=== PATIENT | female | born 1970 | race Caucasian/White ===

== ENCOUNTER 2020-02-10 06:50 | Day surgery (SDC) | payer OTHER ==
[2020-02-07 16:33] VITALS: BMI 26.6
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
[2020-02-10] MEDS ORDERED: Thrombin 5000 UNITS/5 ML VIAL ONE (07:26)
[2020-02-10] MEDS ORDERED: Clindamycin/D5W 900 mg/50 ml Premix Bag ONE (07:36)
[2020-02-10] MEDS ORDERED: Levofloxacin 500 mg/D5W 100 ml Premix Bag ONE (07:36)
[2020-02-10] MEDS ORDERED: Bupivacaine PF 0.5% 30 ML VIAL ONE ×2 (08:12→10:51)
[2020-02-10] MEDS ORDERED: Lidocaine 1% w/Epinephrine 1:100K 20 ML VIAL ONE (08:12)
[2020-02-10] MEDS ORDERED: Midazolam HCl 2 mg/2 ml Vial ONE ×2 (09:04→10:18)
[2020-02-10] MEDS ORDERED: Fentanyl 100 MCG/2 ML VIAL ONE ×3 (10:05→12:20)
[2020-02-10] MEDS ORDERED: Glycopyrrolate 0.2 MG/ML 5 ML SYRINGE ONE (11:50)
[2020-02-10] MEDS ORDERED: Ondansetron PF 4 MG/2 ML Vial ONE (11:50)
[2020-02-10] MEDS ORDERED: Lidocaine 1% PF 5 ML VIAL ONE (11:50)
[2020-02-10] MEDS ORDERED: PROPOFOL 200 MG/20 ML VIAL ONE (11:50)
[2020-02-10] MEDS ORDERED: Ketorolac Tromethamine 30 MG/ML VIAL ONE (11:50)
[2020-02-10] MEDS ORDERED: Rocuronium Bromide 10 MG/ML (10ML VIAL) ONE (11:50)
[2020-02-10] MEDS ORDERED: Dexamethasone 20 MG/5 ML VIAL ONE (11:50)
[2020-02-10] MEDS ORDERED: PHENYLEPHRINE-NS 100 MCG/ML 10 ML SYRINGE ONE (11:50)
[2020-02-10] MEDS ORDERED: Albuterol Sulfate HFA (OR ONLY) ONE (13:03)
[2020-02-10] MEDS ORDERED: Cyclobenzaprine 10 MG TAB ONE (13:21)
[2020-02-10] MEDS ORDERED: HYDROcodone/Acetaminophen 10/325 mg Tablet ONE (14:17)
--- NOTE | 2020-02-11 10:44 | OP ---
DATE OF PROCEDURE: 02/10/2020 DIRECTOR OF GOLF: Terrence Prince PA-C INDICATION: Pain. DIAGNOSES: Lumbar stenosis and lumbar radiculopathy. PROCEDURE PERFORMED: L3-L4 decompression and left L5 foraminotomy. ANESTHESIA: General. DESCRIPTION OF PROCEDURE: The patient was brought into the operating room and placed under general anesthesia. She was flipped from the supine to prone position on the operating room table. A linear incision was planned spanning L3 through L5. After prepping and draping and after an appropriate preoperative pause, the incision was created. The soft tissues were swept away from midline. C-arm images were obtained to confirm the appropriate levels. Decompression was then performed at L3-L4 using an Adson rongeur as well as Kerrisons and high-speed cutting drill bit. After decompressing the central canal and lateral recesses, we redirected our attention to the left L5 lateral recess, where foraminotomy and subsequently hemilaminectomy were performed on the left to decompress the descending and exiting L5 nerve root. After completing that portion of the procedure, the wound was irrigated. Hemostasis was maintained throughout. The wound was then closed in anatomic layers and a pressure dressing was applied. There were no known procedural complications. Job ID: [id number]
== END 2020-02-10 14:37 | disposition home or self-care (01) ==
LOC: SDC 06:50 → MERGE 06:50 → SDC 14:37
PROVIDERS: ATTEND Neurological Surgery
PROC: 01NB0ZZ Release Lumbar Nerve, Open Approach (ICD-10-PCS; principal; 2020-02-10)
DX: M48.061 Spinal stenosis, lumbar region without neurogenic claudication (principal); M54.16 Radiculopathy, lumbar region; G89.4 Chronic pain syndrome; I10 Essential (primary) hypertension; E78.5 Hyperlipidemia, unspecified; F17.200 Nicotine dependence, unspecified, uncomplicated; F31.9 Bipolar disorder, unspecified; F41.9 Anxiety disorder, unspecified; M17.0 Bilateral primary osteoarthritis of knee; Z79.899 Other long term (current) drug therapy; Z88.1 Allergy status to other antibiotic agents; Z88.8 Allergy status to other drugs, medicaments and biological substances; Z98.1 Arthrodesis status
CPT/HCPCS: 76000; J1100; J1885; J1956; J2001; J2250; J2405; J2704; J3010; J3370; J3490; S0020

== ENCOUNTER 2021-05-04 12:19 | Outpatient (CLI) | payer OTHER | END 2021-05-04 12:20 | disposition home or self-care (01) | LOC: BICMRI 12:19 | PROVIDERS: ATTEND Neurological Surgery | DX: M54.5 Low back pain (principal); M48.061 Spinal stenosis, lumbar region without neurogenic claudication; K68.12 Psoas muscle abscess; G06.1 Intraspinal abscess and granuloma | CPT/HCPCS: 72148 ==

== ENCOUNTER 2022-09-14 08:48 | Outpatient (CLI) | payer OTHER | END 2022-09-14 08:49 | disposition home or self-care (01) | LOC: BICCT 08:48 | PROVIDERS: ATTEND Neurological Surgery | DX: M47.26 Other spondylosis with radiculopathy, lumbar region (principal); Z98.890 Other specified postprocedural states | CPT/HCPCS: 72131 ==

== ENCOUNTER 2022-10-14 10:43 | Outpatient (CLI) | payer OTHER ==
[2022-10-14 11:27] LABS: Hemoglobin 13.2 g/dL (12.0-15.5); Mean Corpuscular HGB CONC 34.2 g/dL (32.0-36.0); Mean Corpuscular Hemoglobin 29.7 pg (27.0-33.0); Mean Corpuscular Volume 86.7 fl (81.6-98.3); Platelet Count 365 10x3/uL (150-450); RBC Distribution Width 14.3 % (11.5-14.5); Red Blood Cell (RBC) Count 4.45 10x6/uL (3.90-5.03)
[2022-10-14 11:58] LABS: PTT 31.7 sec (22.0-33.0); Prothrombin Time 10.8 sec (9.5-12.1)
== END 2022-10-14 10:44 | disposition home or self-care (01) ==
LOC: LABBT 10:43
PROVIDERS: ATTEND Neurological Surgery
DX: Z01.818 Encounter for other preprocedural examination (principal); M54.16 Radiculopathy, lumbar region
CPT/HCPCS: 85027; 85610; 85730; 93005; 93010

== ENCOUNTER 2022-10-19 06:49 | Day surgery (SDC) | payer OTHER ==
[2022-10-17 13:44] VITALS: BMI 26.6
[2022-10-19] MEDS ORDERED: Bupivacaine HCl 0.5%/Epinephrine 1:200,000/PF 30 ml Vial ONE (08:05)
[2022-10-19] MEDS ORDERED: Levofloxacin 500 mg/D5W 100 ml Premix Bag ONE (08:18)
[2022-10-19] MEDS ORDERED: Clindamycin/D5W 900 mg/50 ml Premix Bag ONE (08:18)
[2022-10-19] MEDS ORDERED: Midazolam HCl 2 mg/2 ml Vial ONE ×2 (08:27→08:48)
[2022-10-19] MEDS ORDERED: fentaNYL PF 100 MCG/2 ML SYRINGE ONE ×2 (08:33→10:48)
[2022-10-19] MEDS ORDERED: PROPOFOL 200 MG/20 ML VIAL ONE (08:47)
[2022-10-19] MEDS ORDERED: Glycopyrrolate 0.2 MG/ML 5 ML SYRINGE ONE (08:47)
[2022-10-19] MEDS ORDERED: Ondansetron PF 4 MG/2 ML Vial ONE (08:47)
[2022-10-19] MEDS ORDERED: Rocuronium Bromide 10 MG/ML (10ML VIAL) ONE (08:47)
[2022-10-19] MEDS ORDERED: Dexamethasone 20 MG/5 ML VIAL ONE (08:47)
[2022-10-19] MEDS ORDERED: Lidocaine 1% PF 5 ML VIAL ONE (08:47)
[2022-10-19] MEDS ORDERED: NEOSTIGMINE 3 MG/3 ML SYR 3 MG/3 ML SYRINGE ONE (08:47)
[2022-10-19 08:51] LABS: ALT (SGPT) 10 U/L (8-55); AST (SGOT) 23 U/L (5-34); Albumin 4.2 g/dL (3.5-5.0); Alkaline Phosphatase 128 U/L (40-110); Anion Gap 17 mmol/L (10-20); BUN (Urea Nitrogen) 14 mg/dL (9.8-20.1); Bilirubin, Direct 0.1 mg/dL (0.1-0.3); Bilirubin, Total 0.6 mg/dL (0.2-1.2); Calc. Creatinine Clearance 95 mL/min (70-130); Calcium 9.8 mg/dL (7.8-10.44); Carbon Dioxide 25 mmol/L (22-29); Chloride 101 mmol/L (98-107); Estimated GFR 85; Glucose 102 mg/dL (70-105); Potassium 3.5 mmol/L (3.5-5.1); Protein, Total 8.4 g/dL (6.0-8.3); Sodium 139 mmol/L (136-145)
== END 2022-10-19 12:20 | disposition home or self-care (01) ==
LOC: SDC 06:49
PROVIDERS: ATTEND Neurological Surgery
PROC: 01NB0ZZ Release Lumbar Nerve, Open Approach (ICD-10-PCS; principal; 2022-10-19)
DX: M48.062 Spinal stenosis, lumbar region with neurogenic claudication (principal); M54.16 Radiculopathy, lumbar region; M19.90 Unspecified osteoarthritis, unspecified site; G89.4 Chronic pain syndrome; E78.5 Hyperlipidemia, unspecified; K21.9 Gastro-esophageal reflux disease without esophagitis; F17.210 Nicotine dependence, cigarettes, uncomplicated; Z79.899 Other long term (current) drug therapy; Z88.1 Allergy status to other antibiotic agents; Z88.5 Allergy status to narcotic agent; Z98.1 Arthrodesis status
CPT/HCPCS: 80048; 80076; J1100; J1956; J2250; J2405; J2704; J3490

== ENCOUNTER 2022-12-22 09:55 | Outpatient (CLI) | payer OTHER | END 2022-12-22 09:56 | disposition home or self-care (01) | LOC: BICRAD 09:55 | PROVIDERS: ATTEND Neurological Surgery | DX: M54.6 Pain in thoracic spine (principal); M54.16 Radiculopathy, lumbar region; M47.816 Spondylosis without myelopathy or radiculopathy, lumbar region | CPT/HCPCS: 72072; 72120 ==

== ENCOUNTER 2024-09-20 05:32 | Day surgery (SDC) | payer OTHER ==
[2024-09-19 11:02] VITALS: BMI 28.1
[2024-09-20] MEDS ORDERED: EPINEPHrine 1 MG/ML VIAL ONE (06:09)
[2024-09-20] MEDS ORDERED: Thrombin 5000 UNITS/5 ML VIAL ONE (06:10)
[2024-09-20] MEDS ORDERED: Bupivacaine PF 0.5% 30 ML VIAL ONE (06:10)
[2024-09-20] MEDS ORDERED: fentaNYL PF 100 MCG/2 ML SYRINGE ONE ×3 (06:30→09:32)
[2024-09-20] MEDS ORDERED: Rocuronium Bromide 10 MG/ML (10ML VIAL) ONE (06:30)
[2024-09-20] MEDS ORDERED: Dexamethasone 4 mg/ml Vial ONE ×3 (06:30→07:42)
[2024-09-20] MEDS ORDERED: PROPOFOL 20 ML ONE ×2 (06:31→08:28)
[2024-09-20] MEDS ORDERED: Midazolam HCl 2 mg/2 ml Vial ONE ×2 (06:31→07:02)
[2024-09-20] MEDS ORDERED: LevoFLOXacin D5W 500 mg (100 mL) BAG ONE (06:48)
[2024-09-20] MEDS ORDERED: Clindamycin/D5W 900 mg/50 ml Premix Bag ONE (06:48)
[2024-09-20 06:57] LABS: Anion Gap 15 mmol/L (10-20); BUN (Urea Nitrogen) 13 mg/dL (9.8-20.1); Calc. Creatinine Clearance 88 mL/min (70-130); Calcium 8.9 mg/dL (7.8-10.44); Carbon Dioxide 20 mmol/L (22-29); Chloride 105 mmol/L (98-107); Estimated GFR 73; Glucose 104 mg/dL (70-105); Potassium 3.8 mmol/L (3.5-5.1); Sodium 136 mmol/L (136-145)
[2024-09-20] MEDS ORDERED: KETAMINE 100 MG/ML (5ML VIAL) ONE (07:02)
[2024-09-20] MEDS ORDERED: Albuterol HFA (OR) 200 PUFF INH ONE ×2 (07:39→08:19)
[2024-09-20] MEDS ORDERED: PHENYLEPHRINE-NS 100 MCG/ML 10 ML SYRINGE ONE (08:12)
[2024-09-20] MEDS ORDERED: Lidocaine 2% 6 ML (Jelly) SYR ONE (08:19)
[2024-09-20] MEDS ORDERED: SUGAMMADEX SODIUM 200 MG/2 ML VIAL ONE (08:33)
[2024-09-20] MEDS ORDERED: Ondansetron PF 4 MG/2 ML Vial ONE (08:34)
== END 2024-09-20 11:55 | disposition home or self-care (01) ==
LOC: SDC 05:32
PROVIDERS: ATTEND Neurological Surgery
PROC: 01NB0ZZ Release Lumbar Nerve, Open Approach (ICD-10-PCS; principal; 2024-09-20)
DX: M48.062 Spinal stenosis, lumbar region with neurogenic claudication (principal); M54.16 Radiculopathy, lumbar region; I10 Essential (primary) hypertension; F41.9 Anxiety disorder, unspecified; F32.A Depression, unspecified; G43.909 Migraine, unspecified, not intractable, without status migrainosus; G89.29 Other chronic pain; K75.9 Inflammatory liver disease, unspecified; Z98.51 Tubal ligation status; Z88.1 Allergy status to other antibiotic agents; Z88.8 Allergy status to other drugs, medicaments and biological substances; Z79.899 Other long term (current) drug therapy
CPT/HCPCS: 80048; 93005; 93010; J0171; J0665; J1100; J1956; J2250; J2405; J2704; J3490

== ENCOUNTER 2025-05-13 12:41 | Outpatient (CLI) | payer OTHER | END 2025-05-13 12:42 | disposition home or self-care (01) | LOC: SCSRAD 12:41 | PROVIDERS: ATTEND Family Medicine | DX: M25.561 Pain in right knee (principal); G89.29 Other chronic pain ==

== ENCOUNTER 2025-05-22 09:38 | Outpatient (CLI) | payer OTHER | END 2025-05-22 09:39 | disposition home or self-care (01) | LOC: SCSRAD 09:38 | PROVIDERS: ATTEND Family Medicine | DX: R05.3 Chronic cough (principal); I51.7 Cardiomegaly | CPT/HCPCS: 71046 ==

== ENCOUNTER 2025-07-17 13:53 | Outpatient (CLI) | payer OTHER | END 2025-07-17 13:54 | disposition home or self-care (01) | LOC: SCSRAD 13:53 | PROVIDERS: ATTEND Family Medicine | DX: M25.571 Pain in right ankle and joints of right foot (principal); Z98.890 Other specified postprocedural states ==